=== PATIENT | female | born 1955 | race Caucasian/White ===

== ENCOUNTER 2017-09-09 11:00 | Outpatient (RCR) | payer OTHER, SELFPAY ==
--- NOTE | 2017-06-27 17:20 | HP.OTEVAL_ITS ---
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 Date of Evaluation: 06/27/17 Occupational Therapist: Joy Wayne - Subjective Subjective: Pt., Lei, nasimvd and noted surgery was May 31. She noted that splinted for two weeks,a nd the two weeks of casting. She noted she recently got cast off 1 hour prior to appointment. Notes everything is going 'pretty good '. - Pain Right Hand 0 Pain Intensity Range: 3, 8 - Objective Objective/Observation: Sobia presents with incision on dorsum of thumb. Wound closed but still healing at this time. She presents qwith decreasd ROM and strength. Sensation WFL. - ROM Wrist: WFL CMC: opposition: R 0-4, L 0-17 MP: flexion R 0-25, L 15-50 IP: flexion R 0-35, L 5-60 MP: WFL PIP: WFL DIP: WFL - Sensation Sensation Comments: WFL at this time. Denies numbness or tingling. - DASH-Disabilities of Arm, Shoulder& Hand DASH Sum: 52 - Goals Goal:: Pt. to increased R screw machine adjuster automatic to that of equal value of L screw machine adjuster automatic 2/3 trials 75% of the time to decrease need for assistance at return to PLOF and returning to work. Goal:: Pt. to increase R thumb ROM to that of equal value of left non affected hand 4/5 trials 80% of the time to promote increasing ROM and strength to complete ADl/AIDls by time of d/c. Goal:: Pt. to consistently rate R thumb at 0-1/10 pain during all ADL/IADLs 45 trials 80% of the time to promote increasing (I) and decreasing need for assistance by timeof d/c. Goal:: Pt. R fx pinch strength to be equal to L nonaffected hand 4/ 5 trials 80 % of the time to promote increased (I) and decreased need fo resistance by time of d/c. Goal:: Pt. to be mod I to complete jt protection techniques during all ADL/ IADLs to promote integrity of R thumb and returning to PLOF 4/ 5trials 80% of the time by d/c. Goal:: Pt. to be (I) to return to all ADl/IADLs including opening jar 4/ 5trials 80% of the time by d/c. - Rehabilitation General Assessment: Pt., Lei , arrived to session on this date. She is 4 weeks post-op of CMC arthoplasty and noted was casted for 4 weeks. Cast removed 1 hour prio to appointment. She presents with decreased ROM, strength, and ability to complete ADl/IADLs with R dominant hand. She notes pain minimal on this date. A forearm based thumb spica fabircated on this date and she is to start very light thumb oppositiobn as tolerated 2x daily 5-10 reps within pain tolerance. Rehabilitation Potential: Good - Anticipated Interventions Anticipated Interventions: A/AAROM/PROM, Strengthening, Edema Control, Scar Care , Massage, Desensitization, Modalities, Orthoses, Joint Protection/Energy Conservation, Ergonomic Education, Fine Motor Coord/Joo, ADL Training, Caregiver Training, Home Program - Visit Plan Frequency: 2-3x /Week Duration: 4-6 Weeks General Plan: Pt., Lei, to see OT for ttreat of thumb s/p CMC arthoplasty to promote pain management, increasing ROM, strength, and ability to return to all ADl/AIDls including work. TEXT: Thank you for the opportunity to evaluate your patient. For Medicare and Medicare HMO plans, please review the plan of care and approve it. It will need to be FAXED BACK to us at [phone] for Medicare purposes. Please let me know if there are questions or concerns regarding this plan of care. Physician Signature: Date:
--- NOTE | 2017-06-27 17:27 | HP.OTEVAL_ITS ---
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 Date of Evaluation: 06/27/17 Occupational Therapist: Joy Wayne - Subjective Subjective: Pt., Lei, arrived and noted surgery was May 31. She noted that splinted for two weeks, and the two weeks of casting. She noted she recently got cast off 1 hour prior to appointment. Notes everything is going 'pretty good '. - Pain Right Hand 0 Pain Intensity Range: 3, 8 - Objective Objective/Observation: Sobia presents with incision on dorsum of thumb and wrist over CMC. Wound closed but still healing at this time. She presents with decreasd ROM and strength. Sensation WFL. - ROM Wrist: WFL CMC: opposition: R 0-4, L 0-17 MP: flexion R 0-25, L 15-50 IP: flexion R 0-35, L 5-60 MP: WFL PIP: WFL DIP: WFL - Strength Head Start Teacher: R held L 47 Lateral Pinch: R held L 13 Tripod Pinch: R held L 10 Tip-to-Tip Pinch: R held L 7 - Sensation Sensation Comments: WFL at this time. Denies numbness or tingling. - DASH-Disabilities of Arm, Shoulder& Hand DASH Sum: 52 - Goals Goal:: Pt. to increased R communications electrician supervisor to that of equal value of L communications electrician supervisor 2/3 trials 75% of the time to decrease need for assistance at return to PLOF and returning to work. Goal:: Pt. to increase R thumb ROM to that of equal value of left non affected hand 4/5 trials 80% of the time to promote increasing ROM and strength to complete ADl/AIDls by time of d/c. Goal:: Pt. to consistently rate R thumb at 0-1/10 pain during all ADL/IADLs 45 trials 80% of the time to promote increasing (I) and decreasing need for assistance by timeof d/c. Goal:: Pt. R fx pinch strength to be equal to L nonaffected hand 4/ 5 trials 80 % of the time to promote increased (I) and decreased need fo resistance by time of d/c. Goal:: Pt. to be mod I to complete jt protection techniques during all ADL/ IADLs to promote integrity of R thumb and returning to PLOF 4/ 5trials 80% of the time by d/c. Goal:: Pt. to be (I) to return to all ADl/IADLs including opening jar 4/ 5trials 80% of the time by d/c. - Rehabilitation General Assessment: Pt., Jul , arrived to session on this date. She is 4 weeks post-op of CMC arthoplasty and noted was casted for 4 weeks. Cast removed 1 hour prio to appointment. She presents with decreased ROM, strength, and ability to complete ADl/IADLs with R dominant hand. She notes pain minimal on this date. A forearm based thumb spica fabircated on this date and she is to start very light thumb opposition as tolerated 2x daily 5-10 reps within pain tolerance. Rehabilitation Potential: Good - Anticipated Interventions Anticipated Interventions: A/AAROM/PROM, Strengthening, Edema Control, Scar Care , Massage, Desensitization, Modalities, Orthoses, Joint Protection/Energy Conservation, Ergonomic Education, Fine Motor Coord/Joo, ADL Training, Caregiver Training, Home Program - Visit Plan Frequency: 2-3x /Week Duration: 4-6 Weeks General Plan: Pt., Jul, to see OT for ttreat of thumb s/p CMC arthoplasty to promote pain management, increasing ROM, strength, and ability to return to all ADl/AIDls including work. TEXT: Thank you for the opportunity to evaluate your patient. For Medicare and Medicare HMO plans, please review the plan of care and approve it. It will need to be FAXED BACK to us at [phone] for Medicare purposes. Please let me know if there are questions or concerns regarding this plan of care. Physician Signature: Date:
--- NOTE | 2017-06-27 17:33 | HP.OTEVAL_ITS ---
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 Date of Evaluation: 06/27/17 Occupational Therapist: Joy Wayne - Subjective Subjective: Pt., Lei, arrived and noted surgery was May 31. She noted that splinted for two weeks,a nd the two weeks of casting. She noted she recently got cast off 1 hour prior to appointment. Notes everything is going 'pretty good '. - Pain Right Hand 0 Pain Intensity Range: 3, 8 - Objective Objective/Observation: Sobia presents with incision on dorsum of thumb and wrist over CMC. Wound closed but still healing at this time. She presents with decreasd ROM and strength. Sensation WFL. - ROM Wrist: WFL CMC: opposition: R 0-4, L 0-17 MP: flexion R 0-25, L 15-50 IP: flexion R 0-35, L 5-60 MP: WFL PIP: WFL DIP: WFL - Strength Set Up Mechanic Automatic Line: R held L 47 Lateral Pinch: R held L 13 Tripod Pinch: R held L 10 Tip-to-Tip Pinch: R held L 7 - Sensation Sensation Comments: WFL at this time. Denies numbness or tingling. - DASH-Disabilities of Arm, Shoulder& Hand DASH Sum: 52 - Goals Goal:: Pt. to increased R cribbing setter to that of equal value of L cribbing setter 2/3 trials 75% of the time to decrease need for assistance at return to PLOF and returning to work. Goal:: Pt. to increase R thumb ROM to that of equal value of left non affected hand 4/5 trials 80% of the time to promote increasing ROM and strength to complete ADl/AIDls by time of d/c. Goal:: Pt. to consistently rate R thumb at 0-1/10 pain during all ADL/IADLs 45 trials 80% of the time to promote increasing (I) and decreasing need for assistance by timeof d/c. Goal:: Pt. R fx pinch strength to be equal to L nonaffected hand 4/ 5 trials 80 % of the time to promote increased (I) and decreased need fo resistance by time of d/c. Goal:: Pt. to be mod I to complete jt protection techniques during all ADL/ IADLs to promote integrity of R thumb and returning to PLOF 4/ 5trials 80% of the time by d/c. Goal:: Pt. to be (I) to return to all ADl/IADLs including opening jar 4/ 5 trials 80% of the time by d/c. - Rehabilitation General Assessment: Pt., Jul , arrived to session on this date. She is 4 weeks post-op of CMC arthoplasty and noted was casted for 4 weeks. Cast removed 1 hour prio to appointment. She presents with decreased ROM, strength, and ability to complete ADl/IADLs with R dominant hand. She notes pain minimal on this date. A forearm based thumb spica fabricated on this date and she is to start very light thumb opposition as tolerated 2x daily 5-10 reps within pain tolerance. Rehabilitation Potential: Good - Anticipated Interventions Anticipated Interventions: A/AAROM/PROM, Strengthening, Edema Control, Scar Care , Massage, Desensitization, Modalities, Orthoses, Joint Protection/Energy Conservation, Ergonomic Education, Fine Motor Coord/Joo, ADL Training, Caregiver Training, Home Program - Visit Plan Frequency: 2-3x /Week Duration: 4-6 Weeks General Plan: Pt., Jul, to see OT for treatment of thumb s/p CMC arthoplasty to promote pain management, increasing ROM, strength, and ability to return to all ADl/AIDls including work. TEXT: Thank you for the opportunity to evaluate your patient. For Medicare and Medicare HMO plans, please review the plan of care and approve it. It will need to be FAXED BACK to us at [phone] for Medicare purposes. Please let me know if there are questions or concerns regarding this plan of care. Physician Signature: Date:
--- NOTE | 2017-08-08 14:35 | HP.OTREVAL ---
NOEL Moreau, PA.JOSEPH It has been my pleasure to treat LEI CORLEY over the last 15 visits for OA of first CMC joint R thumb. Please see the progress note below for an update on the occupational therapy plan of care! Subjective: Arrived and today is last schedules appointment. Noted increased soreness since returning to easy/progressive work. Reassessment to occur. Objective/Function: Reassessment completed. Infection is cleared by doctor and is now undercontrol. Tolerating light progression back to FT work. but increased soreness to 3/10. Lei ROM is WFL and is as follows: thumb opposition R 0-15, L 0-17; MP R 0-37, L 0-42, IP R -14-45, L 08-51. Strength assessment completed and is as follows: webbing supervisor R 37.6, L 51.6; lateral R 7, L 14; three jaw R 4, L 10; tip pinch R 1, L 1 lbs. Plan Frequency: 1x/Week Duration: 4 Weeks Plan: continue POC and promote increasing strength to decrease hand fatigue during work and to help increase stability to thumb for work related tasks. 1x a week fro 4 weeks and will increased HEP regimen. Goals - Goals Goal:: Pt. to increased R webbing supervisor to that of equal value of L webbing supervisor 2/3 trials 75% of the time to decrease need for assistance at return to PLOF and returning to work. Goal:: Pt. to increase R thumb ROM to that of equal value of left non affected hand 4/5 trials 80% of the time to promote increasing ROM and strength to complete ADl/AIDls by time of d/c. Goal:: Pt. to consistently rate R thumb at 0-1/10 pain during all ADL/IADLs 45 trials 80% of the time to promote increasing (I) and decreasing need for assistance by timeof d/c. Goal:: Pt. R fx pinch strength to be equal to L nonaffected hand 4/ 5 trials 80% of the time to promote increased (I) and decreased need fo resistance by time of d/c. Goal:: Pt. to be mod I to complete jt protection techniques during all ADL/IADLs to promote integrity of R thumb and returning to PLOF 4/ 5trials 80% of the time by d/c. Goal:: Pt. to be (I) to return to all ADl/IADLs including opening jar 4/ 5 trials 80% of the time by d/c. Anticipated Interventions Anticipated Interventions: A/AAROM/PROM, Strengthening, Edema Control, Scar Care, Massage, Desensitization, Modalities, Orthoses, Joint Protection/Energy Conservation, Ergonomic Education, Fine Motor Coord/Joo, ADL Training, Caregiver Training, Home Program Please do not hesitate to contact me at [phone] by phone or if you have questions or concerns regarding this new plan of care! Sincerely, Joy Wayne
--- NOTE | 2017-09-09 11:35 | HP.OTDCSUM_ITS ---
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 Please see the following information for a summary of their discharge status. - Objective Objective/Function: Reassessment completed on this date. Thenar eminence atrophy still present at this time. Pain is minimal. ROM is WFL and is as follows: CMC opposition R 0-15, L WFL, radial adduction R 0-37, L WFL; thumb MP R 8-35, L WFL ; IP R -14-51, L WFL. Strength assessment complete and is as follows: legal job titles R 41, L 82; lateral R 8, L 14; three jaw R 5, L 12; tip R 4, L 10. She has progressed with goals and has returned to work. - Goals Patient Goals: Regain Mobility, Regain Strength, Decrease Pain, Return to Work, Improve Fine Motor Skills, Use Hand/Wrist/Arm Normally Again, Increase ROM, Be More Independent in ADLS, Resume Former Household Responsibilities (Cooking, Cleaning,Yard, etc.), Resume Hobbies Goal:: Pt. to increased R legal job titles to that of equal value of L legal job titles 2/3 trials 75% of the time to decrease need for assistance at return to PLOF and returning to work. Goal:: Pt. to increase R thumb ROM to that of equal value of left non affected hand 4/5 trials 80% of the time to promote increasing ROM and strength to complete ADl/AIDls by time of d/c. Goal:: Pt. to consistently rate R thumb at 0-1/10 pain during all ADL/IADLs 45 trials 80% of the time to promote increasing (I) and decreasing need for assistance by timeof d/c. Goal:: Pt. R fx pinch strength to be equal to L nonaffected hand 4/ 5 trials 80 % of the time to promote increased (I) and decreased need fo resistance by time of d/c. Goal:: Pt. to be mod I to complete jt protection techniques during all ADL/ IADLs to promote integrity of R thumb and returning to PLOF 4/ 5trials 80% of the time by d/c. Goal:: Pt. to be (I) to return to all ADl/IADLs including opening jar 4/ 5 trials 80% of the time by d/c. - Plan Plan: She will be d/c'd on this date. She is to continue HEP and follow up with Dr. Strong. She is to call questions/ concerns. - D/C Information If there are questions or concerns regarding this patient's occupational therapy , please fell free to call me at [phone]. Thank you for the referral of this patient. Sincerely, Joy Wayne
== END 2017-09-09 19:00 | disposition home or self-care (01) ==
LOC: OT 11:00
PROVIDERS: Family Provider Family Medicine; PCP Family Medicine; Visit Provider Physician Assistant Surgical
DX: M18.11 Unilateral primary osteoarthritis of first carpometacarpal joint, right hand (principal)
CPT/HCPCS: 97018; 97035; 97110; 97140; 97166; 97530; 97760

== ENCOUNTER → 2017-11-04 09:17 | Outpatient (CLI) | payer OTHER, SELFPAY ==
[2017-11-04 10:11] LABS: AST(SGOT) 20 U/L (15-37); Alanine Aminotransfer ALT/SGPT 34 U/L (13-56); Albumin, Serum 3.5 g/dL (3.2-5.0); Alkaline Phosphatase 104 U/L (45-117); Bilirubin, Direct 0.05 mg/dL (0.00-0.30); Cholesterol 139 mg/dL (200); Globulin 3.4 g/dL (2.2-4.2); High Density Lipoprotein 47 mg/dL; Protein, Total 6.9 g/dL (6.4-8.2); Triglycerides 158 mg/dL; Very Low Density Lipoprotein 32 mg/dL (5-40)
== END ==
PROVIDERS: Family Provider Family Medicine; PCP Family Medicine; Visit Provider Internal Medicine Cardiovascular Disease
DX: E78.5 Hyperlipidemia, unspecified (principal)
CPT/HCPCS: 36415; 80061; 80076

== ENCOUNTER → 2018-05-22 09:41 | Outpatient (CLI) | payer OTHER, SELFPAY ==
[2018-05-22 11:17] LABS: AST(SGOT) 25 U/L (15-37); Alanine Aminotransfer ALT/SGPT 45 U/L (13-56); Albumin, Serum 3.7 g/dL (3.2-5.0); Alkaline Phosphatase 92 U/L (45-117); Bilirubin, Direct 0.11 mg/dL (0.00-0.30); Cholesterol 145 mg/dL (200); Globulin 3.2 g/dL (2.2-4.2); High Density Lipoprotein 51 mg/dL; Protein, Total 6.9 g/dL (6.4-8.2); Triglycerides 118 mg/dL; Very Low Density Lipoprotein 24 mg/dL (5-40)
== END ==
PROVIDERS: Physician Assistant Medical; Family Provider Family Medicine; PCP Family Medicine; Referring Provider Internal Medicine Cardiovascular Disease; Visit Provider Internal Medicine Cardiovascular Disease
DX: E78.5 Hyperlipidemia, unspecified (principal)
CPT/HCPCS: 36415; 80061; 80076

== ENCOUNTER → 2018-07-07 20:12 | Outpatient (CLI) | payer OTHER, SELFPAY | PROVIDERS: Family Provider Family Medicine; PCP Family Medicine; Visit Provider Internal Medicine Cardiovascular Disease | DX: G47.10 Hypersomnia, unspecified (principal) | CPT/HCPCS: 95810 ==

== ENCOUNTER → 2018-12-08 | Outpatient (CLI) | payer OTHER, SELFPAY ==
[2018-10-02 13:02] VITALS: BMI 28.4
[2018-12-08 11:22] LABS: AST(SGOT) 31 U/L (15-37); Alanine Aminotransfer ALT/SGPT 33 U/L (13-56); Albumin, Serum 3.6 g/dL (3.2-5.0); Alkaline Phosphatase 96 U/L (45-117); Bilirubin, Direct 0.08 mg/dL (0.00-0.30); Cholesterol 139 mg/dL (200); Globulin 3.4 g/dL (2.2-4.2); High Density Lipoprotein 49 mg/dL; Triglycerides 148 mg/dL; Very Low Density Lipoprotein 30 mg/dL (5-40)
== END | disposition home or self-care (01) ==
LOC: LAB 09:39
PROVIDERS: Family Provider Family Medicine; PCP Family Medicine; Referring Provider Physician Assistant Medical; Visit Provider Physician Assistant Medical
DX: E78.5 Hyperlipidemia, unspecified (principal)
CPT/HCPCS: 36415; 80061; 80076

== ENCOUNTER 2019-07-17 02:54 | Emergency (ER) | payer OTHER, SELFPAY ==
[2019-07-06 07:45] VITALS: BMI 27.7
[2019-07-17 02:55] VITALS: BP 161/74; PULSE 65; RESP 16; TEMP 36.6; O2SAT 100; BMI 27.5
--- NOTE | 2019-07-17 03:19 | ED.DCSUM_ITS ---
History of Present Illness Chief Complaint: Flank Pain Informant: Patient Narrative: Resenting with left-sided flank and back pain that started just prior to arrival. Is a sharp stabbing pain associate with nausea. No history of kidney stones. Is not movement related. No injury. No history of AAA. No abdominal pain. Past Medical History - Allergies and Home Meds Allergies/Adverse Reactions: Allergies Penicillins Adverse Reaction (Verified 07/17/19 02:59) Hives Primary Care Physician: Mervin Munoz MD [Primary Care Provider] - Prior records reviewed: Yes Past Medical History: - - Benign mass on the colon Surgical History: - - Colon, stomach, thyroid Lives: With Family Smoking Status: Former smoker Alcohol: None Drugs: None - Family History Sibling Family History: Family History (Last Reviewed 07/06/19 @ 08:51 by ROSALBA Godwin) Father CAD (coronary artery disease) Myocardial infarction, Onset Age: 56 History Cabg Brother CAD (coronary artery disease) History Cabg, Onset Age: 52 Brother CAD (coronary artery disease) History Cabg, Onset Age: 56 Family History: Reports: Heart Disease Maternal Family History: Family History (Last Reviewed 07/06/19 @ 08:51 by ROSALBA Godwin) Father CAD (coronary artery disease) Myocardial infarction, Onset Age: 56 History Cabg Brother CAD (coronary artery disease) History Cabg, Onset Age: 52 Brother CAD (coronary artery disease) History Cabg, Onset Age: 56 Family History: Reports: Hypertension Review of Systems General: Denies: Chills, Fever, Sweats Eyes: Denies: Visual changes - bilaterally, Diplopia ENT: Denies: Rhinorrhea, Sore throat Cardiovascular: Denies: Chest pain, Palpitations Respiratory: Denies: Dyspnea, Cough, Dyspnea on exertion Gastrointestinal: Reports: Nausea. Denies: Abdominal pain, Vomiting, Diarrhea, Melena, Hematochezia Genitourinary: Denies: Dysuria, Hematuria, Frequency Musculoskeletal: Reports: Back pain. Denies: Extremity Pain Skin: Denies: Rash, Wounds Neurological: Denies: Headache, Weakness, Numbness Physical Exam Vital Signs/Narrative: Vital Signs Temp Pulse Resp BP Pulse Ox 07/17/19 02:55 97.9 F 65 16 161/74 H 100 Diagnostic/Tx/Re-eval - Medical Decision Making IV fluids morphine Zofran. Lab work CT abdomen pelvis obtained. CT shows a 4 x 4 mm left-sided kidney stone with hydro-. Urinalysis shows red blood cells. 5- 10 white blood cells with 1+ bacteria. I feel this is not infection. CBC normal. Patient felt much better after treatment. Will be discharged to follow-up with urology. There is a good chance she will pass this on her own. Given a prescription for Percocet and Zofran ED Disposition - Plan for ED Patient: Disposition: Psychiatric Hospital or Unit Diagnosis: Kidney stone on left side Instructions: KIDNEY STONE w/ Colic Prescriptions: Oxycodone HCl/Acetaminophen [Percocet 5/325] 1 - 2 tab PO Q6H PRN PRN 3 Days #12 tab PRN Reason: Pain Prescription Printed Ondansetron [Zofran Odt] 4 mg PO Q8H PRN PRN #10 tab PRN Reason: Nausea Prescription Printed Referrals: Jr Henderson MD [STAFF PHYSICIAN] -
--- NOTE | 2019-07-17 03:19 | CT_ITS ---
HISTORY: LEFT FLANK PAIN X 1 HOUR, HX HTN, MARCY, COLON POLYPS REMOVED TECHNIQUE: Helically acquired images were obtained of the abdomen and pelvis without oral or IV contrast. A radiation dose optimization technique was used for this scan. COMPARISON: None FINDINGS: # of images incl. paperwork: 450 LUNG BASES: clear. CT abdomen: Facet arthropathy and degenerative disc disease within the lower lumbar spine. Vertebral body height is well preserved. Mild degenerative disc disease. The gallbladder remains. Liver, spleen, pancreas, and adrenal glands are normal. The right kidney and ureter are normal. The left kidney demonstrates hydronephrosis and perirenal edema. As demonstrated on the coronal images, magnified views, bone window level, within either the proximal left ureter, or at the left ureteropelvic junction, there is a 4 x 4 mm obstructing stone. It is at the level of the L3 left transverse process. The aorta is disease with circumferential atherosclerotic calcific plaque. There is no intra-or extrahepatic biliary ductal dilatation. CT pelvis: No ascites is present. The uterus has been resected. The appendix is normal. Series 2 image 107. The bladder is decompressed. There is a periumbilical anterior abdominal wall hernia. Is mostly above the umbilicus but is through the midline. Transverse colon and omentum extend into the hernia. The bowel within the hernia does not have a thick wall. There is no upstream distention of bowel indicative that the bowel herniating with into the anterior abdominal wall is causing an obstruction. I measured the hernia to be 10 x 5 x 8 cm. Diverticulosis is severe within the sigmoid colon CT/Abdomen/Pelvis without Cont IMPRESSION: 10 x 5 x 8 cm anterior abdominal wall supraumbilical hernia. Transverse colon and omentum are present within the hernia. There is minimal induration of the fat. It does not appear to be causing a bowel obstruction. The bowel within the hernia does not have thickened garrett. 4 x 4 millimeter obstructing left UVJ or proximal left ureter stone with left hydronephrosis and perirenal edema. Individualized dose optimization techniques were used for this CT. at 0440 Reported and signed by: Celio Giron MD Electronically Signed: Celio Giron MD at 4:39 EST Tel , Service support ,
[2019-07-17] MEDS: Morphine 4 MG/ML Syringe IV ×2 (03:26→05:07)
[2019-07-17] MEDS: Ondansetron 4 MG/2 ML Vial IV (03:26)
[2019-07-17 03:29] LABS: Absolute Lymphocyte Count 3.51 X10^3/uL (0.83-4.51); Absolute Neutrophil Count 3.5 X10^3/uL (2.0-7.7); Basophil# 0.03 X10^3/uL; Basophil% 0.4 % (0-1); Eosinophil# 0.24 X10^3/uL; Hematocrit 39.8 % (37-47); Lymphocyte # 3.51 X10^3/ul (4.0); Lymphocyte % 43.3 % (19-41); Mean Corp Hgb Conc 32.7 g/dL (32-36); Mean Corpuscular Hgb 30.5 pg (27.0-32.0); Mean Corpuscular Volume 93.4 fL (81-99); Mean Platelet Vol. 9.9 fl (6.2-12.0); Monocyte# 0.84 X10^3/uL; Monocyte% 10.4 % (0-10); NRBC Flagged by Analyzer 0 % (0-5); Neutrophil # 3.48 X10^3/uL (2.7-7.7); Neutrophil % 42.8 % (47-70); Platelet Count 238 K/mm3 (150-450); RBC Distribution Width CV 13.5 % (11.6-14.6); RBC Distribution Width SD 45.9 fl (35.1-43.9); Red Blood Count 4.26 M/mm3 (4.2-5.4); White Blood Count 8.1 K/mm3 (4.4-11.0)
[2019-07-17 03:36] LABS: Anion Gap 5 (5-15); BUN 16 mg/dL (7-18); BUN/Creat Ratio 17.9 RATIO (10-20); Calcium,Total 8.7 mg/dL (8.5-10.1); Chloride 105 mmol/L (98-107); EST Glomerular Filtration Rate 67 mL/min (>60); Est Glom Filt Rate - Afr Amer 81 mL/min (>60); Estimated Creatinine Clearance 53.81 ml/min; Glucose 122 mg/dL (74-106); Potassium 3.5 mmol/L (3.5-5.1); Sodium Level 142 mmol/L (136-145)
[2019-07-17] MEDS: 0.9% Normal Saline 1,000 ML 250 ML IV (03:38)
[2019-07-17 04:33] LABS: Mucous, Urine 0 SEEN /hpf (<or=2+)
[2019-07-17 04:36] LABS: Color, Urine Amber (Yellow); Glucose, Dipstick Normal (Normal); Ketone-Dipstick 5 mg/dl (Negative); Leukocyte Esterase-Dipstick 100 /ul (Negative); Nitrite-Dipstick Negative (Negative); Occult Blood-Urine 250 /ul (Negative); Protein-Dipstick 30 mg/dl (Negative); Specific Gravity, Urine 1.025 (1.002-1.030); Urine Clarity Cloudy (Clear); Urine Urobilinogen Normal (Normal)
[2019-07-17 04:41] LABS: Urine Bilirubin Dipstick 1 mg/dL (Negative)
[2019-07-17 04:46] LABS: Red Blood Cells-Urine 25-50 SEEN /hpf (0-5); White Blood Cells 5-10 SEEN /hpf (0-5)
[2019-07-17 04:47] LABS: Bacteria 1+ /hpf (None Seen); Hyaline Cast 0-5 SEEN /lpf (0-5); Squamous Epithelial Cells - UA 0-5 SEEN /hpf (5-10)
[2019-07-17 05:10] VITALS: BP 143/74; PULSE 74; RESP 18; O2SAT 99
== END 2019-07-17 05:16 | disposition home or self-care (01) ==
PROVIDERS: Emergency Provider Emergency Medicine; Family Provider Family Medicine; PCP Family Medicine
DX: N13.2 Hydronephrosis with renal and ureteral calculous obstruction (principal); Z87.891 Personal history of nicotine dependence
CPT/HCPCS: 74176; 80048; 81001; 85025; 96361; 96374; 96375; 96376; 99283; J7030; A4216; J2405

== ENCOUNTER → 2019-07-23 08:57 | Outpatient (CLI) | payer OTHER, SELFPAY ==
[2019-07-17 02:55] VITALS: BMI 27.5
--- NOTE | 2019-07-23 09:09 | RAD_ITS ---
STUDY: X-RAY - ABDOMEN/PELVIS REASON FOR EXAM: Female, 63 years old. kidney stone left side TECHNIQUE: Single supine frontal projection of the abdomen. COMPARISON: None. FINDINGS: There is a 5.2 x 3.5 mm calcification in the left paramedian upper quadrant just superior to the transverse process of L2. There are small calcified findings within the bilateral pelvis most compatible with calcified phleboliths. No other pathologic calcifications are identified. There is an unremarkable bowel gas pattern. There is no gross free air on this single supine view. There is no plain film evident intra-abdominal mass or mass effect. Normal soft tissue structures. No evident acute osseous abnormality. Patient is status post right paramedian pelvic surgery with multiple surgical clips. RAD/Abdomen Single View IMPRESSION: There is a 5.2 x 3.5 mm calculi within the proximal most left ureter versus at the left UPJ region. Calcified pelvic phleboliths. Status post right paramedian pelvic surgery. Significant L5-S1 facet arthrosis and degenerative disc disease. Electronically Signed: Kunal Tate MD at 13:36 EST , Service support ,
== END ==
PROVIDERS: Family Provider Family Medicine; PCP Family Medicine; Referring Provider Urology; Visit Provider Urology
DX: N20.0 Calculus of kidney (principal)
CPT/HCPCS: 74018

== ENCOUNTER → 2019-08-05 08:04 | Outpatient (CLI) | payer OTHER, SELFPAY ==
[2019-07-27 13:57] VITALS: BMI 26.1
[2019-08-05 09:44] LABS: AST(SGOT) 14 U/L (15-37); Alanine Aminotransfer ALT/SGPT 25 U/L (13-56); Albumin, Serum 3.3 g/dL (3.2-5.0); Alkaline Phosphatase 67 U/L (45-117); Bilirubin, Direct 0.12 mg/dL (0.00-0.30); Cholesterol 142 mg/dL (200); High Density Lipoprotein 43 mg/dL; Protein, Total 6.3 g/dL (6.4-8.2); Triglycerides 155 mg/dL; Very Low Density Lipoprotein 31 mg/dL (5-40)
== END ==
PROVIDERS: Family Provider Family Medicine; PCP Family Medicine; Referring Provider Internal Medicine Cardiovascular Disease; Visit Provider Internal Medicine Cardiovascular Disease
DX: E78.5 Hyperlipidemia, unspecified (principal)
CPT/HCPCS: 36415; 80061; 80076

== ENCOUNTER → 2019-10-08 10:16 | Outpatient (CLI) | payer OTHER, SELFPAY ==
[2019-09-28 13:06] VITALS: BMI 26.1
--- NOTE | 2019-10-08 10:16 | STE_ITS ---
Reason For Study: PREOP Stress Results Protocol: Ar Protocol Maximum Predicted HR: 155 bpm Target HR: 132 bpm % Maximum Predicted HR: 86 % DurationHeart Rate Stage (mm:ss) (bpm) BP Comment BASELINE 65 128/64 STAGE 1 3:00 90 140/62 STAGE 2 3:00 107 140/62 STAGE 3 3:00 134 162/66SLIGHT SOB RECOVERY 89 130/68 Stress Duration: 9:00 mm:ss Maximum Stress HR: 134 bpm Baseline Echocardiogram Findings The estimated ejection fraction is 65 %. Stress Echo Wall motion Data Resting WM Intermediate WM Stress WM Resting Wall Motion Wall Motion Stress No regional wall motion No regional wall motion abnormalities noted. abnormalities noted. EKG Data The baseline ECG displays normal sinus rhythm. The patient exercised according to the regular Ar protocol for a total duration of 4. The maximum heart rate attained was 142 beats per minute. This was 91% of maximum predicted heart rate. The patient exercised into stage 4 of the Ar protocol. At peak exercise, upsloping ST changes only were noted, which did not meet the criteria for ischemia. No clinical angina was noted. No arrhythmias noted. Interpretation Summary The estimated ejection fraction is 65 %. Normal, adequate, treadmill echocardiogram. Negative for ischemia by EKG and echocardiographic criteria. No anginal symptoms noted. No arrhythmias noted. Final LVEF is 75%. Test terminated due to attainment target heart rate. Decrease sensitivity due to poor echo windows requiring Definity agent. Patient tolerate procedure well. No complications. Ordering Physician: Sanjay Llanes Referring Physician: Sanjay Llanes Performed By: Omayra Alfonso, EMELIA, RVT
== END ==
PROVIDERS: PCP Family Medicine; Referring Provider Internal Medicine Cardiovascular Disease; Visit Provider Internal Medicine Cardiovascular Disease
DX: Z01.810 Encounter for preprocedural cardiovascular examination (principal); R94.31 Abnormal electrocardiogram [ECG] [EKG]; E78.5 Hyperlipidemia, unspecified; E11.9 Type 2 diabetes mellitus without complications; G47.30 Sleep apnea, unspecified
CPT/HCPCS: 93017; 93350

== ENCOUNTER → 2020-02-29 12:49 | Outpatient (CLI) | payer OTHER, SELFPAY ==
[2020-02-15 09:19] VITALS: BMI 28.0
--- NOTE | 2020-02-29 12:49 | ECHOD_ITS ---
Reason For Study: PHTN Procedure This was a 2D Doppler, Color Flow transthoracic echocardiogram. Exam performed in department. Left Ventricle Normal size and thickness. The estimated ejection fraction is 65 %. Stage 1 diastolic dysfunction. No regional wall motion abnormalities noted. Right Ventricle Normal size and thickness. Normal systolic function. Atria Normal left atrium. Normal right atrium. Normal atrial septum. Mitral Valve The mitral valve is structurally normal. No prolapse or stenosis seen. Tricuspid Valve Normal tricuspid valve. Mild (1+) tricuspid valve insufficiency. Right ventricular systolic pressure estimated to be 34 mmHg. Aortic Valve Normal aortic valve. Trisinus/trileaflet aortic valve. Pulmonic Valve Normal pulmonic valve. Great Vessels Normal aortic root. Normal arch. Normal inferior vena cava. Inferior vena cava collapse with sniff. Pericardium/Pleural No pericardial effusion. MMode/2D Measurements & Calculations LVIDd: 4.7 cm IVSd: 0.93 cm Ao root diam: 3.0 cm LVIDs: 2.0 cm LVPWd: 1.0 cm LA dimension: 3.5 cm RVDd: 3.4 cm FS: 57.5 % LAV(MOD-bp): 30.2 ml LA A4 area: 11.8 cm2 RA A4 area: 13.9 cm2 LAV(MOD-bp) Indexed: 17.1 ml/m2 LAV(MOD-sp2): 24.4 ml LAV(MOD-sp4): 29.4 ml Time Measurements MV dec time: 0.29 sec Doppler Measurements & Calculations MV E max osmin: 58.2 cm/sec Lat Peak E' Osmin: 6.8 cm/sec Med Peak E' Osmin: 6.8 cm/sec MV A max osmin: 84.7 cm/sec E/E' lat: 8.6 E/E' med: 8.5 MV E/A: 0.69 MV V2 max: 118.5 cm/sec MV P1/2t max osmin: 70.3 cm/sec Ao V2 max: 115.2 cm/sec MV max P.6 mmHg MV P1/2t: 70.2 msec Ao max P.3 mmHg MV V2 mean: 55.3 cm/sec MV dec slope: 293.4 cm/sec2 Ao V2 mean: 74.1 cm/sec MV mean P.4 mmHg MVA(P1/2t): 3.1 cm2 Ao mean P.5 mmHg MV V2 VTI: 26.7 cm Ao V2 VTI: 23.2 cm LV V1 max: 102.7 cm/sec PA V2 max: 85.7 cm/sec TR max osmin: 269.3 cm/sec LV V1 max P.2 mmHg TR max P.0 mmHg LV V1 mean P.0 mmHg LV V1 mean: 65.5 cm/sec LV V1 VTI: 23.9 cm Interpretation Summary The estimated ejection fraction is 65 %. Stage 1 diastolic dysfunction. Mild (1+) tricuspid valve insufficiency. Right ventricular systolic pressure estimated to be 34 mmHg. Compared to echo report dated 05/08/2017, no appreciable changes noted. Ordering Physician: Sanjay Llanes Referring Physician: Sanjay Llnaes Performed By: Raffy Cottrell RCS
== END ==
PROVIDERS: PCP Family Medicine; Referring Provider Internal Medicine Cardiovascular Disease; Visit Provider Internal Medicine Cardiovascular Disease
DX: R94.31 Abnormal electrocardiogram [ECG] [EKG] (principal); E11.9 Type 2 diabetes mellitus without complications; G47.33 Obstructive sleep apnea (adult) (pediatric)
CPT/HCPCS: 93306

== ENCOUNTER → 2020-04-11 17:19 | Outpatient (CLI) | payer OTHER, SELFPAY ==
[2020-04-07 13:32] VITALS: BMI 28.2
== END ==
PROVIDERS: PCP Family Medicine; Referring Provider Family Medicine; Visit Provider Family Medicine
DX: Z20.828 Contact with and (suspected) exposure to other viral communicable diseases (principal)
CPT/HCPCS: 87635; C9803; U0003

== ENCOUNTER 2020-05-03 08:55 | Day surgery (SDC) | payer OTHER, SELFPAY ==
[2020-03-24 13:41] VITALS: BMI 26.1
--- NOTE | 2020-04-07 01:32 | HP_ITS ---
Intake Vital Signs 04/07/20 Height 5 ft 3 in 04/07/20 Weight: 159 lb 4 oz 04/07/20 BMI 28.2 04/07/20 BP 126/78 H 04/07/20 Blood Pressure Location Rt brachial 04/07/20 Position Sitting 04/07/20 Respiration 16 04/07/20 Pulse 81 04/07/20 Pulse Source Monitor 04/07/20 Temp 97.9 F 04/07/20 Temp Source Temporal 04/07/20 Pulse Oximetry (%) 100 04/07/20 Oxygen Delivery Method room air 04/07/20 BMI 26.1 Intake Visit Reasons: UPDATE H & P Chief Complaint: update H&P for umbilical Pediatric Care Coordinator Required: No Is patient in pain?: No Allergies Penicillins Adverse Reaction (Verified 04/07/20 13:33) Hives Medications Cholecalciferol (VIT D3) [Vitamin D3] 1,000 unit PO DAILY 03/24/16 [History Confirmed 04/07/20] Famotidine [Pepcid] 40 mg PO DAILY 03/24/16 [History Confirmed 04/07/20] Levothyroxine [Synthroid] 137 mcg PO DAILY 03/24/16 [History Confirmed 04/07/20] Nabumetone [Relafen] 750 mg PO DAILY 03/24/16 [History Confirmed 04/07/20] Pyridoxine HCl [Vitamin B-6] 100 mg PO DAILY 03/24/16 [History Confirmed 04/07/20] aspirin 81 mg tablet,delayed release 81 mg PO .q day tab 10/23/17 [History Confirmed 04/07/20] atorvastatin 20 mg tablet 20 mg PO QHS tab 10/23/17 [History Confirmed 04/07/20] flaxseed oil 1,000 mg capsule 1,000 mg PO QDAY 10/23/17 [History Confirmed 04/07/20] glucosamine 500 dh-hltwvlvvg-lnw no1 416.6 mg-C 20 ok-zdfg-sgab tablet 1 tab PO .q day ea 10/23/17 [History Confirmed 04/07/20] fgwqnnpl-ezs-qrbls acid 0.4 mg-lycopene 300 mcg-lutein 250 mcg tablet 1 tab PO QDAY 10/23/17 [History Confirmed 04/07/20] omega-3 fatty acids 1,000 mg capsule 1,000 mg PO QDAY 10/23/17 [History Confirmed 04/07/20] selenium 200 mcg capsule 200 mcg PO QDAY 10/23/17 [History Confirmed 04/07/20] triamterene 50 mg-hydrochlorothiazide 25 mg capsule 1 cap PO .q day ea 10/23/17 [History Confirmed 04/07/20] metformin 500 mg tablet 500 mg PO BID tab 06/02/18 [History Confirmed 04/07/20] losartan 25 mg tablet 25 mg PO QDAY #90 tab 07/14/19 [Rx Confirmed 04/07/20] Alendronate Sodium 1 tab PO QWEEK 07/17/19 [History Confirmed 04/07/20] fluticasone propionate 50 mcg/actuation nasal spray,suspension 1 spray INTRANASAL QDAY PRN 02/15/20 [History Confirmed 04/07/20] [facility] Medical History Sleep apnea (Acute) History of colon polyps (Acute) History of thyroid cancer (Acute ~2013) History of pneumococcal pneumonia (Resolved) History of bronchitis (Resolved) Diabetes mellitus type II, controlled (Chronic) Abnormal EKG (Chronic) Hyperlipidemia (Chronic) Hypothyroidism (Chronic) Hypertension (Chronic) Surgical History right hand surgery (Resolved) 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) History of tubal ligation (Chronic) Status post bilateral foot surgery (Chronic) History of total abdominal hysterectomy and bilateral salpingo-oophorectomy (Chronic) History of thyroidectomy (Chronic) Family History Father CAD (coronary artery disease) Myocardial infarction, Onset Age: 56 History Cabg Hypertension Brother CAD (coronary artery disease) History Cabg, Onset Age: 52 Diabetes Hypertension Brother CAD (coronary artery disease) History Cabg, Onset Age: 56 Social History Smoking Status: Former smoker how long ago did patient quit smokin, 1ppd second hand exposure: Yes HPI HPI HPI: HOLDEN CORLEY, is a 64 F who presents to the office today for HPI HPI HPI: HOLDEN CORLEY, is a 64 F who presents to the office today for ROS General General: No weight change, appetite, fatigue, colon cancer, breast cancer or weakness HEENT HEENT: No difficulty swallowing, eye injury, eye surgery, swollen glands or hoarseness Endo Endocrine: Yes diabetes mellitus and thyroid cancer; no thyroid disease, Hair loss, heat intolerance or cold intolerance Breast Breast: No left breast lump, right breast lump, nipple discharge, breast pain, abnormal mammogram, abnormal US or breast enlargement Musc Musculoskeletal: Yes arthritis; no back problems, rheumatoid arthritis, gout or joint pain Cardio Cardiovascular: Yes high blood pressure; no murmur, pacemaker, heart disease, atrial fibrillation, heart attack, heart stent, palpitations, shortness of breat with exertion or chest pain Psych Psychiatric: No depression, anxiety or hearing voices Resp Respiratory: No shortness of breath, Yes sleep apnea, No cough, No COPD, No asthma, No emphysema, No wheezing Gastro Gastrointestinal: No abdominal pain, No nausea or vomiting, No diarrhea, No constipation, No blood in stool, Yes acid reflux, No hemorrhoids, No ulcers, No gallbladder problem, No black,tarry stools Jamaal Hematologic: No blood thinners, No blood disorders, No bleeding, No anemia, No blood clots Neuro Neurologic: No weakness Exam Chest Breast Palpation: No nipple discharge Cardio Heart Sounds: no murmurs Assessment & Plan Problems 1. Incisional hernia, without obstruction or gangrene K43.2 Plan My plan is to perform an Incisional hernia repair with mesh. The planned surgical procedure was discussed extensively with the patient. The risks, benefits, anticipated outcomes and possible complication were mentioned. The patient understands that all hernia repair surgery has a chance of recurrence and/or chronic post-operative pain. My staff has also explained the procedure in understandable terms and the patient was given the option to take printed material concerning the planned procedure. The patient had the opportunity to ask questions concerning the planned procedure. The patient freely consents to the planned procedure. Coding Level of Care Code Off vis,est,level 2 Diagnoses Incisional hernia, without obstruction or gangrene K43.2 ??Obstruction and gangrene presence: without obstruction or gangrene Date _ Sanjay Hayes MD
[2020-04-07 13:32] VITALS: BMI 28.2
--- NOTE | 2020-04-25 12:47 | EKG12_ITS ---
Test Reason : PRE OP Blood Pressure : / mmHG Vent. Rate : 081 BPM Atrial Rate : 081 BPM P-R Int : 146 ms QRS Dur : 084 ms QT Int : 382 ms P-R-T Axes : 065 040 -05 degrees QTc Int : 443 ms Normal sinus rhythm Nonspecific ST and T wave abnormality Abnormal ECG Confirmed by JAJA PERDOMO, THUY ([id number]), newspaper or periodical editor PEPITO COLE ([id number]) on 04/27/2020 10:14:29 AM Referred By: Sanjay Hayes Confirmed By:THUY WILKINSON MD
[2020-04-25 13:14] LABS: Hematocrit 39.7 % (37-47); Hemoglobin 13.8 g/dL (12.0-15.0); Mean Corp Hgb Conc 34.8 g/dL (32-36); Mean Corpuscular Volume 92.1 fL (81-99); Mean Platelet Vol. 9.9 fl (6.2-12.0); Platelet Count 247 K/mm3 (150-450); RBC Distribution Width CV 13.5 % (11.6-14.6); RBC Distribution Width SD 44.2 fl (35.1-43.9); Red Blood Count 4.31 M/mm3 (4.2-5.4); White Blood Count 9.3 K/mm3 (4.4-11.0)
[2020-04-25 13:36] LABS: Hemoglobin A1c 6.3 % (3.8-5.6)
[2020-04-25 13:47] LABS: Anion Gap 8 (5-15); BUN 14 mg/dL (7-18); BUN/Creat Ratio 13.7 RATIO (10-20); Calcium,Total 9.4 mg/dL (8.5-10.1); Chloride 103 mmol/L (98-107); Creatinine, Serum 1.02 mg/dL (0.55-1.02); EST Glomerular Filtration Rate 58 mL/min (>60); Est Glom Filt Rate - Afr Amer 70 mL/min (>60); Glucose 175 mg/dL (74-106); Potassium 3.5 mmol/L (3.5-5.1); Sodium Level 137 mmol/L (136-145)
[2020-05-03] VITALS (11 sets, daily range): BP systolic 110–145; BP diastolic 52–82; PULSE 74–93; RESP 16–18; TEMP 36.2–37.3; O2SAT 92–99; BMI 26.6; BMI 27.4
[2020-05-03 09:40] LABS: Bedside Glucose 123 mg/dL (70-110)
[2020-05-03] MEDS: Lactated Ringers 1,000 ML 100 ML IV ×2 (09:53→18:42)
--- NOTE | 2020-05-03 10:54 | PCM.HP.BLA ---
History and Physical Date of Admission: 05/03/20 [facility] [address] [place] [address] OFFICE VISIT Date of Service: 04/07/20 MR#: [id number] Acct: [id number] Name: HODLEN CORLEY Rep #: [id number] : 1955 Provider: Dr. Sanjay Hayes MD Age/Sex: 64/F Location: [facility] Status: Signed Intake Vital Signs 04/07/20 Height 5 ft 3 in 04/07/20 Weight: 159 lb 4 oz 04/07/20 BP 126/78 H 04/07/20 Blood Pressure Location Rt brachial 04/07/20 Position Sitting 04/07/20 Respiration 16 04/07/20 Pulse 81 04/07/20 Pulse Source Monitor 04/07/20 Temp 97.9 F 04/07/20 Temp Source Temporal 04/07/20 Pulse Oximetry (%) 100 04/07/20 Oxygen Delivery Method room air 04/07/20 BMI 26.1 Intake Visit Reasons: UPDATE H & P Chief Complaint: update H&P for umbilical Enrollment Representative Required: No Is patient in pain?: No Allergies Penicillins Adverse Reaction (Verified 04/07/20 13:33) Hives Medications Cholecalciferol (VIT D3) [Vitamin D3] 1,000 unit PO DAILY 03/24/16 [History Confirmed 04/07/20] Famotidine [Pepcid] 40 mg PO DAILY 03/24/16 [History Confirmed 04/07/20] Levothyroxine [Synthroid] 137 mcg PO DAILY 03/24/16 [History Confirmed 04/07/20] Nabumetone [Relafen] 750 mg PO DAILY 03/24/16 [History Confirmed 04/07/20] Pyridoxine HCl [Vitamin B-6] 100 mg PO DAILY 03/24/16 [History Confirmed 04/07/20] aspirin 81 mg tablet,delayed release 81 mg PO .q day tab 10/23/17 [History Confirmed 04/07/20] atorvastatin 20 mg tablet 20 mg PO QHS tab 10/23/17 [History Confirmed 04/07/20] flaxseed oil 1,000 mg capsule 1,000 mg PO QDAY 10/23/17 [History Confirmed 04/07/20] glucosamine 500 rx-yadlxlbog-pwj no1 416.6 mg-C 20 me-iucb-exhe tablet 1 tab PO .q day ea 10/23/17 [History Confirmed 04/07/20] wlluqypl-frs-hrztq acid 0.4 mg-lycopene 300 mcg-lutein 250 mcg tablet 1 tab PO QDAY 10/23/17 [History Confirmed 04/07/20] omega-3 fatty acids 1,000 mg capsule 1,000 mg PO QDAY 10/23/17 [History Confirmed 04/07/20] selenium 200 mcg capsule 200 mcg PO QDAY 10/23/17 [History Confirmed 04/07/20] triamterene 50 mg-hydrochlorothiazide 25 mg capsule 1 cap PO .q day ea 10/23/17 [History Confirmed 04/07/20] metformin 500 mg tablet 500 mg PO BID tab 06/02/18 [History Confirmed 04/07/20] losartan 25 mg tablet 25 mg PO QDAY #90 tab 07/14/19 [Rx Confirmed 04/07/20] Alendronate Sodium 1 tab PO QWEEK 07/17/19 [History Confirmed 04/07/20] fluticasone propionate 50 mcg/actuation nasal spray,suspension 1 spray INTRANASAL QDAY PRN 02/15/20 [History Confirmed 04/07/20] [facility] Medical History Sleep apnea (Acute) History of colon polyps (Acute) History of thyroid cancer (Acute ~2012) History of pneumococcal pneumonia (Resolved) History of bronchitis (Resolved) Diabetes mellitus type II, controlled (Chronic) Abnormal EKG (Chronic) Hyperlipidemia (Chronic) Hypothyroidism (Chronic) Hypertension (Chronic) Surgical History right hand surgery (Resolved) 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 Sanjay Hayes MD) Smoking Status: Former smoker how long ago did patient quit smokin, 1ppd second hand exposure: Yes HPI HPI HPI: HOLDEN CORLEY, is a 64 F who presents to the office today for HPI HPI Surgical H&P: Yes HPI: HOLDEN CORLEY, is a 64 F who presents to the office today for Reevaluation of an incisional hernia. Patient had a CAT scan of the abdomen and pelvis for kidney stones and was noted to have a rather large incisional hernia just above her umbilicus. She says that she has had this for actually quite some time she does not have any pain or discomfort with it but it has been growing in size. The CT scan Shows a 10 x 5 x 8 cm anterior abdominal wall superior umbilical incisional hernia. The transverse colon and omentum are in the hernia. Since I originally saw her in September she is started to have some increasing discomfort in the area. And would like to have this repaired.She has had no change in her bowel or bladder habits. ROS General General: No weight change, appetite, fatigue, colon cancer, breast cancer or weakness HEENT HEENT: No difficulty swallowing, eye injury, eye surgery, swollen glands or hoarseness Endo Endocrine: Yes diabetes mellitus and thyroid cancer; no thyroid disease, Hair loss, heat intolerance or cold intolerance Breast Breast: No left breast lump, right breast lump, nipple discharge, breast pain, abnormal mammogram, abnormal US or breast enlargement Musc Musculoskeletal: Yes arthritis; no back problems, rheumatoid arthritis, gout or joint pain Cardio Cardiovascular: Yes high blood pressure; no murmur, pacemaker, heart disease, atrial fibrillation, heart attack, heart stent, palpitations, shortness of breat with exertion or chest pain Psych Psychiatric: No depression, anxiety or hearing voices Resp Respiratory: No shortness of breath, Yes sleep apnea, No cough, No COPD, No asthma, No emphysema, No wheezing Gastro Gastrointestinal: No abdominal pain, No nausea or vomiting, No diarrhea, No constipation, No blood in stool, Yes acid reflux, No hemorrhoids, No ulcers, No gallbladder problem, No black,tarry stools Jamaal Hematologic: No blood thinners, No blood disorders, No bleeding, No anemia, No blood clots Neuro Neurologic: No weakness Exam Const General: no acute distress, well developed, well hydrated Orientation: oriented to person, oriented to place, oriented to time [facility] Head: normocephalic, atraumatic Ears: external ears normal Mouth: moist mucous membranes Eyes Sclera: sclerae normal Pupils: normal by confrontation Neck Neck: no lymphadenopathy noted Neck mass: No Thyroid: thyroid normal, symmetrical Chest Chest palpation & inspection: normal inspection of the chest Breast Palpation: No nipple discharge Resp Effort & Inspection: normal respiratory effort Auscultation: clear to auscultation bilaterally Percussion: percussion normal Cardio Rate: regular rate Rhythm: regular rhythm Heart Sounds: no murmurs GI Palpation: soft, no hepatosplenomegaly, no masses, tender Rectal Exam: other Other: Large reducible incisional hernias identified superior to the umbilicus.It is nontender to touch it easily reduces.It does not feel larger than it initially did when I saw her in September. Rectal exam deferred. Extrem General: normal to inspection, no clubbing, cyanosis or edema Assessment & Plan Problems 1. Incisional hernia, without obstruction or gangrene K43.2 Plan My plan is to perform an Incisional hernia repair with mesh. The planned surgical procedure was discussed extensively with the patient. The risks, benefits, anticipated outcomes and possible complication were mentioned. The patient understands that all hernia repair surgery has a chance of recurrence and/or chronic post-operative pain. My staff has also explained the procedure in understandable terms and the patient was given the option to take printed material concerning the planned procedure. The patient had the opportunity to ask questions concerning the planned procedure. The patient freely consents to the planned procedure. Coding Level of Care Code Off vis,est,level 2 Diagnoses Incisional hernia, without obstruction or gangrene K43.2 ??Obstruction and gangrene presence: without obstruction or gangrene COVID (Procedure Consent) Procedure Criteria Procedure Criteria: Yes Elective The surgeon/proceduralist and patient have discussed in detail the risk of exposure to and/or potential harm posed by the COVID-19 virus with having a surgery/procedure at this time versus the risk of? delaying the surgery/procedure. It is not possible to know either the risk of delaying the surgery or procedure or chance of getting an infection with perfect accuracy, but a joint decision was made between the patient and the surgeon/proceduralist ?to proceed at this time with the scheduled surgery/procedure as indicated on the consent form. 04/09/20 1118 <Electronically signed by Sanjay Hayes MD> Date Sanjay Hayes MD [facility] Signature: Date (if applicable) CC: ~ I have re-examined the patient. There are no clinical changes since date of exam.
--- NOTE | 2020-05-03 11:00 | HERN_PTH ---
PATIENT: HOLDEN CORLEY LOC: [facility] U#:[id number] AGE/SX: 64/F ROOM: RE05/03/[address]: Dr. Sanjay Hayes MD : 1955 BED: DIS: 05/04/2020 SPEC #: [id number] RECD: 05/03/20 13:12 STATUS: MARIN NII #: [id number] BON: 05/03/20 11:[address]: Sanjay Hayes DEPT: SURGICAL PATHOLOGY RECD BY: Kevin Peoples ENTERED: 05/04/20 07:00 SP TYPE: Hernia OTHR DR: Dr. Mervin Munoz MD Tissues: HERNIA Procedures: Surgery Specimen Level III HEADER OPERATION: Incisional hernia repair with mesh PRE-OP DIAGNOSIS: Incisional hernia TISSUE SUBMITTED: Hernia sac MICROSCOPIC DIAGNOSIS Hernia sac, herniorrhaphy: Fibrosis. AM:tatyana 05/05/20 MICROSCOPIC DESCRIPTION Slides are reviewed. GROSS DESCRIPTION Received in fixative is one container labeled with the patient's name and designated hernia sac. The specimen consists of a piece of fibromembranous tissue measuring 5 x 2 x 1 cm. Sections do not reveal any mass lesion. Validation Software Facilitator sections are submitted in one cassette. / AM:tatyana 05/04/20 TC:5 CPT: 77343
[2020-05-03] MEDS: 0.9% Normal Saline (Pres. free 10 ML Vial (11:39)
[2020-05-03] MEDS: BUPIVACAINE LIPOSOME/PF 20 ML VIAL OPERA.SITE (11:39)
[2020-05-03 13:05] LABS: Bedside Glucose 119 mg/dL (70-110)
--- NOTE | 2020-05-03 13:07 | PCM.OPRPT ---
Problem List (1) Incisional hernia Status: Acute Qualifiers: Obstruction and gangrene presence: without obstruction or gangrene Qualified Code(s): K43.2 - Incisional hernia without obstruction or gangrene Report of Operation Date of Procedure: 05/03/20 Pre-Operative Diagnosis: Incisional hernia Post-Operative Diagnosis: Same Surgery/Procedure Performed:: Incisional hernia repair with mesh Type of Anesthesia:: General Anesthesiologist: Jose Luis Conde Drains: 15 round Rico-Encarnacion Estimated Blood Loss (mL): < 25 cc Description of Procedure: Patient was brought in the operating room. Placed in the supine position. Under excellent general endotracheal ovation abdomen was sterilely prepped and draped in usual fashion. Patient had a previous midline incision below the umbilicus and extending superiorly to the left side. Her hernia was in the upper aspect of this extending towards the xiphoid. I injected local. I made an incision in the upper abdomen close to the umbilical area and extended it towards the left side. I dissected down hernia sac was identified I dissected it free from the peritoneal he structured fascia. I tried to get this off but I just could not get into a good peritoneal plane it was very thin and wispy it was very clear that I was going to have to take the hernia sac off placed the contents back into the abdominal cavity and then close in a 2 layered approach. I dissected the anterior refractory bricklayer circumferentially around this defect which measured approximately 9 cm in length and approximately 6 cm in width. This anterior layer once I got it free both anteriorly and towards the abdominal area I closed with #1 Vicryl. There were no rents identified during this process. I then fashioned a ventral ST hernia patch into the wound. Reference #[id number] lot number [id number] this laid completely flat in the area I was very happy with this. I did take a pro-tack and tack it with 3 tacks superiorly and inferiorly so that it would stay flat and not move. I then circumferentially used interrupted [id number] sutures of #1 Nurolon to tack the fascia down onto the mesh itself. Once this was completed I brought a drain in from the left lateral approach this was where the hernia sac had traveled down the most. I sutured it to the skin with a 3-0 nylon and then placed it in the superior aspect underneath the layer of nylon so that it would be able to collect any fluid that were to accumulate. After this was done this I injected Exparel throughout the musculature. I then brought the subcu together with 2-0 Vicryl deep dermals with 3-0 Vicryl then a running 4-0 Monocryl Steri-Strips were applied sterile dressings were applied and the patient tolerated the procedure well. - Admit VTE Documentation VTE Present on Admission: No VTE Mechan Device Prophylaxis: SCD's VTE Pharm Prophylaxis ordered?: No Reason prophylaxis not ordered:: Treatment Not Indicated [id number]: Other Procedure See Notes - [id number]
--- NOTE | 2020-05-03 14:05 | NURSING ---
pt arrived to unit @ 1400 dose of clindamycin not on unit
[2020-05-03] MEDS: metFORMIN HCl 500 MG Tablet PO (18:42)
[2020-05-03] MEDS: oxyCODONE 5 MG Tablet PO (18:44)
[2020-05-03] MEDS: Atorvastatin Calcium 20 MG Tablet PO (20:44)
[2020-05-04 03:54] VITALS: BP 112/49; PULSE 84; RESP 18; TEMP 36.9; O2SAT 95
[2020-05-04] MEDS: Levothyroxine 137 MCG Tablet PO (05:17)
[2020-05-04 07:36] VITALS: BP 108/52; PULSE 76; RESP 16; TEMP 36.8; O2SAT 95
[2020-05-04] MEDS: Triamterene 37.5MG/Hctz 25MG Capsule 1 CAP PO (07:42)
[2020-05-04] MEDS: metFORMIN HCl 500 MG Tablet PO (07:42)
[2020-05-04] MEDS: Etodolac 300 MG Capsule PO (07:42)
[2020-05-04] MEDS: Losartan Potassium 25 MG Tablet PO (07:42)
[2020-05-04] MEDS: Famotidine 20 MG Tablet 40 MG PO (07:46)
--- NOTE | 2020-05-04 09:57 | PCM.PN.SRG ---
Patient Problems: Active and Suspected Problems (Last Reviewed 04/07/20 @ 13:32 by Dory Spence) Incisional hernia (Acute) Subjective: Patient evaluated resting comfortably in the chair. Patient notes minimal amount of discomfort with sitting more uncomfortable with movement. Denies nausea, vomiting, fever. Urinating well. Negative flatus. - Physical Exam Vitals/I&O's: Vital Signs Temp Pulse Resp BP Pulse Ox 98.3 F 76 16 108/52 L 95 05/04/20 07:36 05/04/20 07:36 05/04/20 07:36 05/04/20 07:36 05/04/20 07:36 Oxygen Delivery Method Room Air Weight: 159 lb 13.362 oz Body Mass Index (BMI) 27.4 Intake and Output for Last 24 Hours 05/02/20 05/03/20 05/04/20 23:59 23:59 23:59 Intake Total 1493.67 / 1493.67 1024.33 / 1024.33 Output Total 500 / 500 330 / 330 Balance 993.67 / 993.67 694.33 / 694.33 General: Alert, Oriented x3, Cooperative Abdomen: Soft, Hypoactive Bowel Sounds, Obese, Tender - very minimal amount of discomfort, - - Incision c/d/i. LANNY drain removed. Tip intact. Patient tolerated well. Laboratory Results 05/03/20 12:58: POC Glucose 119 H Current Medications Acetaminophen (Acetaminophen 325 Mg Tablet) 650 mg PO Q6H PRN PRN PRN Reason: Pain Score 1-10 Alendronate Sodium (Alendronate Sodium 70 Mg Tablet) 70 mg PO QWEEK [facility] Atorvastatin Calcium (Atorvastatin Calcium 20 Mg Tablet) 20 mg PO QHS [facility] Last Admin: 05/03/20 20:44 Dose: 20 mg Documented by: Etodolac (Etodolac 300 Mg Capsule) 300 mg PO DAILY [facility] Last Admin: 05/04/20 07:42 Dose: 300 mg Documented by: Famotidine (Famotidine 20 Mg Tablet) 40 mg PO DAILY [facility] Last Admin: 05/04/20 07:46 Dose: 40 mg Documented by: Hydromorphone HCl (Hydromorphone 0.5 Mg/0.5 Ml Syringe) 0.5 - 1 mg IV Q2H PRN PRN PRN Reason: Pain Score 1-10 Clindamycin Phosphate 900 mg/ (Dextrose) 106 mls @ 150 mls/hr IV Q8H [facility] Last Infusion: 05/04/20 04:34 Dose: Infused Documented by: Influenza Virus Vaccine Quadrival (Influenza Vaccine (6mos+)/Pf 0.5 Ml Syringe) 0.5 ml IM .ONCE ONE Stop: 05/04/20 10:01 Last Admin: 05/04/20 07:43 Dose: 0.5 ml Documented by: Levothyroxine Sodium (Levothyroxine 137 Mcg Tablet) 137 mcg PO DAILY@0600 [facility] Last Admin: 05/04/20 05:17 Dose: 137 mcg Documented by: Losartan Potassium (Losartan Potassium 25 Mg Tablet) 25 mg PO DAILY [facility] Last Admin: 05/04/20 07:42 Dose: 25 mg Documented by: Metformin HCl (Metformin Hcl 500 Mg Tablet) 500 mg PO BIDCM [facility] Last Admin: 05/04/20 07:42 Dose: 500 mg Documented by: Ondansetron HCl (Ondansetron 4 Mg/2 Ml Vial) 4 mg IV Q8H PRN PRN PRN Reason: NAUSEA Oxycodone HCl (Oxycodone 5 Mg Tablet) 5 - 10 mg PO Q4H PRN PRN PRN Reason: Pain Score 1-10 Last Admin: 05/03/20 18:44 Dose: 5 mg Documented by: Sodium Chloride (0.9% Saline Lock 10 Ml Syringe) 10 - 40 ml IV UD PRN PRN Reason: SALINE FLUSH Triamterene/HCTZ (Triamterene 37.5mg/Hctz 25mg Capsule) 1 cap PO DAILY [facility] Last Admin: 05/04/20 07:42 Dose: 1 cap Documented by: Medical Necessity - Tobacco Use Smoking Status: Former smoker Assessment/Plan All Active Problems (Last Reviewed 04/07/20 @ 13:32 by Dory Spence) Incisional hernia (Acute) Sleep apnea (Acute) History of colon polyps (Acute) History of thyroid cancer (Acute ~2012) History of pneumococcal pneumonia (Resolved) History of bronchitis (Resolved) right hand surgery (Resolved) Chest pain (Acute) I am following this patient in conjunction with Dr. Hayes Impression: S/p incisional hernia repair with mesh Probable discharge later today Tolerating diet well Urinating well LANNY drain removed today Home going instructions discussed with patient Inpatient E&M: 79321 Subs Hosp L1 - No charge
--- NOTE | 2020-05-04 10:04 | DCINST_ITS ---
Discharge Diet: Light diet - advance as tolerated Discharge Activity: May Not Drive - for 5 days or while taking narcotic pain meds., May Shower - with the bandage in place 1 day after surgery. Lifting Restrictions: 20 pounds for 8 weeks. Additional Activity Instructions:: Climbing stairs is fine, walking is encouraged. Sitting in bed may be uncomfortable. Sitting up using your lateral muscles (sitting up sideways) is usually more comfortable. Do not drive, work heavy equipment of sign legal documents for 24 hours. Pain medications may cause nausea, you should typically eat light foods as you take your pain medications. Pain medications may also cause constipation. If you have difficulty with this, discuss with your doctor. Call your doctor if your incision/area has: Continuous Slow Oozing, Sudden Increased Bleeding, Increased Pain/ Swelling, Increased Redness, Foul Smelling Discharge Call your doctor if you observe: Fever of 101 or Higher Suture Line Care: Avoid Pulling/Pushing, Avoid Pinching/Bending Change Dressing in (Days):: 2 - Leave steri-strips for 1 week. May protect with a guaze bandaid. Cleanse incision/area with: Soap & Water Allergies/Adverse Reactions: Allergies Penicillins Adverse Reaction (Verified 05/03/20 09:18) Hives Medications to take at Discharge Cholecalciferol (VIT D3) [Vitamin D3] 1,000 unit PO DAILY 03/24/16 Famotidine [Pepcid] 40 mg PO DAILY 03/24/16 Levothyroxine [Synthroid] 137 mcg PO DAILY 03/24/16 Nabumetone [Relafen] 750 mg PO DAILY 03/24/16 Pyridoxine HCl [Vitamin B-6] 100 mg PO DAILY 03/24/16 aspirin 81 mg tablet,delayed release 81 mg PO .q day tab 10/23/17 atorvastatin 20 mg tablet 20 mg PO QHS tab 10/23/17 flaxseed oil 1,000 mg capsule 1,000 mg PO QDAY 10/23/17 glucosamine 500 [id number]-apm no1 416.6 mg-C 20 qd-tpdg-unfy tablet 1 tab PO .q day ea 10/23/17 tvpyqnkg-van-xhthf acid 0.4 mg-lycopene 300 mcg-lutein 250 mcg tablet 1 tab PO QDAY 10/23/17 omega-3 fatty acids 1,000 mg capsule 1,000 mg PO QDAY 10/23/17 selenium 200 mcg capsule 200 mcg PO QDAY 10/23/17 triamterene 50 mg-hydrochlorothiazide 25 mg capsule 1 cap PO .q day ea 10/23/17 metformin 500 mg tablet 500 mg PO BID tab 06/02/18 Alendronate Sodium 1 tab PO QWEEK 07/17/19 fluticasone propionate 50 mcg/actuation nasal spray,suspension 1 spray INTRANA ROSSANA QDAY PRN 02/15/20 Losartan Potassium [Cozaar] 25 mg PO QDAY 04/25/20 Oxycodone [Oxyir] 5 mg PO Q6H PRN PRN 4 Days #12 tablet 05/04/20 The following prescriptions were given: Oxycodone [Oxyir] 5 mg PO Q6H PRN PRN 4 Days #12 tablet PRN Reason: Pain Score 1-10 Transmission Status: Sent to [id number] Primary Care Physician: Mervin Munoz MD [Primary Care Provider] - Test Results: Test results from this visit will be discussed in further detail at your follow- up appointment, if applicable. Please Follow Up With: Elana Dougherty PA-C - [phone] When: 10 days Proposed Discharge Date: 05/04/20
[2020-05-04 14:27] VITALS: BP 104/50; PULSE 72; RESP 18; TEMP 36.8; O2SAT 98
== END 2020-05-04 16:10 | disposition home or self-care (01) ==
LOC: SDC 08:55 → AC 08:56 → MS3 13:35
PROVIDERS: Anesthesiology; PCP Family Medicine; Referring Provider Surgery; Visit Provider Surgery
PROC: (CPT 49560; principal; 2020-05-03 10:45)
DX: K43.2 Incisional hernia without obstruction or gangrene (principal); Z11.59 Encounter for screening for other viral diseases; I10 Essential (primary) hypertension; E11.9 Type 2 diabetes mellitus without complications; E03.9 Hypothyroidism, unspecified; G47.30 Sleep apnea, unspecified; E78.00 Pure hypercholesterolemia, unspecified; Z23 Encounter for immunization; Z78.0 Asymptomatic menopausal state; Z87.01 Personal history of pneumonia (recurrent); Z86.010 Personal history of colon polyps; Z85.850 Personal history of malignant neoplasm of thyroid; Z79.84 Long term (current) use of oral hypoglycemic drugs; Z79.82 Long term (current) use of aspirin; Z79.899 Other long term (current) drug therapy; Z87.891 Personal history of nicotine dependence
CPT/HCPCS: 49560; 49568; 36415; 80048; 82962; 83036; 84443; 85027; 87635; 88302; 88304; 93005; 99251; C9803; J7120; 90686; C1781; G0463; J2405; J3490; U0003

== ENCOUNTER → 2020-08-11 09:34 | Outpatient (CLI) | payer OTHER, SELFPAY ==
[2020-05-03 14:01] VITALS: BMI 27.4
[2020-08-11 10:38] LABS: AST(SGOT) 17 U/L (15-37); Alanine Aminotransfer ALT/SGPT 31 U/L (13-56); Albumin, Serum 3.3 g/dL (3.2-5.0); Alkaline Phosphatase 77 U/L (45-117); Bilirubin, Direct 0.13 mg/dL (0.00-0.30); Cholesterol 143 mg/dL (200); Globulin 3.1 g/dL (2.2-4.2); High Density Lipoprotein 47 mg/dL; Protein, Total 6.4 g/dL (6.4-8.2); Triglycerides 135 mg/dL; Very Low Density Lipoprotein 27 mg/dL (5-40)
== END ==
PROVIDERS: Internal Medicine Cardiovascular Disease; PCP Family Medicine; Referring Provider Physician Assistant Medical; Visit Provider Physician Assistant Medical
DX: E78.5 Hyperlipidemia, unspecified (principal)
CPT/HCPCS: 36415; 80061; 80076

== ENCOUNTER → 2020-11-15 07:46 | Outpatient (CLI) | payer OTHER, SELFPAY ==
[2020-11-15 08:14] LABS: Hematocrit 41.7 % (37-47); Hemoglobin 13.2 g/dL (12.0-15.0); Mean Corp Hgb Conc 31.7 g/dL (32-36); Mean Corpuscular Hgb 29.2 pg (27.0-32.0); Mean Corpuscular Volume 92.3 fL (81-99); Platelet Count 242 K/mm3 (150-450); RBC Distribution Width CV 13.6 % (11.6-14.6); RBC Distribution Width SD 46.4 fl (35.1-43.9); Red Blood Count 4.52 M/mm3 (4.2-5.4); White Blood Count 6.2 K/mm3 (4.4-11.0)
[2020-11-15 09:27] LABS: Vitamin B12 > 2000 pg/mL (211-911)
[2020-11-15 09:28] LABS: ALB/GLOB Ratio 1.2 RATIO (0.9-2.4); AST(SGOT) 19 U/L (15-37); Alanine Aminotransfer ALT/SGPT 31 U/L (13-56); Albumin, Serum 3.6 g/dL (3.2-5.0); Alkaline Phosphatase 78 U/L (45-117); Anion Gap 4 (5-15); BUN 17 mg/dL (7-18); BUN/Creat Ratio 18.5 RATIO (10-20); Calcium,Total 8.7 mg/dL (8.5-10.1); Chloride 107 mmol/L (98-107); Creatinine, Serum 0.92 mg/dL (0.55-1.02); EST Glomerular Filtration Rate 65 mL/min (>60); Est Glom Filt Rate - Afr Amer 79 mL/min (>60); Glucose 122 mg/dL (74-106); Potassium 3.7 mmol/L (3.5-5.1); Protein, Total 6.6 g/dL (6.4-8.2); Sodium Level 140 mmol/L (136-145); Thyroid Stim Hormone (TSH) 2.52 uIU/mL (0.358-3.74)
== END ==
PROVIDERS: PCP Family Medicine; Referring Provider Psychiatry & Neurology Neurology; Visit Provider Psychiatry & Neurology Neurology
DX: M54.17 Radiculopathy, lumbosacral region (principal)
CPT/HCPCS: 36415; 80053; 82607; 82746; 84443; 85027

== ENCOUNTER → 2021-03-29 06:07 | Outpatient (CLI) | payer OTHER, SELFPAY ==
--- NOTE | 2021-03-29 10:48 | NEURO ---
NCS and/or EMG Patient Report Ordering Doctor: James Velarde DATE OF SERVICE: 03/29/21 Lei Marquez presents for electrodiagnostic testing of the right lower limb. She reports continued right lower extremity numbness and pain around the ankle and foot. Electrodiagnostic findings: Right peroneal motor nerve demonstrates normal distal latency and amplitude with reduced conduction velocity across the fibular head. Normal right tibial motor response. Prolonged right sural latency. On needle EMG, polyphasic motor units are noted in the right gastrocnemius. No acute denervation is noted. Electrodiagnostic impression: This is an abnormal study in the right lower limb 1. Electrodiagnostic findings demonstrate a right-sided peroneal neuropathy with slowing of conduction across the fibular head. 2. There is no electrodiagnostic evidence for lumbosacral radiculopathy. 3. Electrodiagnostic findings demonstrate a mild right sural neuropathy.
== END ==
PROVIDERS: PCP Family Medicine; Referring Provider Psychiatry & Neurology Neurology; Visit Provider Psychiatry & Neurology Neurology
DX: M54.17 Radiculopathy, lumbosacral region (principal)
CPT/HCPCS: 95886; 95910

== ENCOUNTER → 2021-05-09 08:04 | Outpatient (CLI) | payer OTHER, SELFPAY ==
[2021-05-09 09:25] LABS: AST(SGOT) 20 U/L (15-37); Alanine Aminotransfer ALT/SGPT 34 U/L (13-56); Albumin, Serum 3.4 g/dL (3.2-5.0); Alkaline Phosphatase 71 U/L (45-117); Bilirubin, Direct 0.15 mg/dL (0.00-0.30); Cholesterol 134 mg/dL (200); Globulin 3.2 g/dL (2.2-4.2); High Density Lipoprotein 51 mg/dL; Protein, Total 6.6 g/dL (6.4-8.2); Triglycerides 94 mg/dL; Very Low Density Lipoprotein 19 mg/dL (5-40)
== END ==
PROVIDERS: PCP Family Medicine; Referring Provider Nurse Practitioner Gerontology; Visit Provider Nurse Practitioner Gerontology
DX: E78.00 Pure hypercholesterolemia, unspecified (principal); E78.5 Hyperlipidemia, unspecified
CPT/HCPCS: 36415; 80061; 80076

== ENCOUNTER 2021-08-23 20:23 | Outpatient (CLI) | payer OTHER, SELFPAY | END 2021-08-23 23:59 | disposition short-term general hospital (02) | PROVIDERS: PCP Family Medicine; Visit Provider Physician Assistant | DX: Z20.822 Contact with and (suspected) exposure to COVID-19 (principal) | CPT/HCPCS: 87635; U0003; U0005 ==

== ENCOUNTER 2021-09-18 08:13 | Outpatient (CLI) | payer OTHER, SELFPAY ==
--- NOTE | 2021-09-18 10:47 | NEURO_ITS ---
NCS and/or EMG Patient Report Ordering Doctor: Elisa Hirsch NP DATE OF SERVICE: 09/18/21 Indication: Sensory symptoms affecting the right lower extremity following an intrapelvic surgery approximately 13 years ago. Since that time she has had fixed numbness on the lateral aspect of the right foot. There is no associated motor deficit. Symptoms are static, but bothersome. Evaluate for peripheral nerve injury. Findings: Nerve conduction studies were performed in the right lower extremity. Some comparisons were made to the left side. The right peroneal motor study recording the extensor digitorum brevis showed a normal amplitude, normal distal latency and normal conduction velocity. No conduction block or focal slowing was present across the fibular neck. The right tibial motor study recording the abductor hallucis brevis showed a normal amplitude, normal distal latency and borderline conduction velocity. The right sural sensory response was difficult to obtain. When a waveform was recorded, it was small in amplitude and not reproducible. The left sural response, however, was very easily recorded with a normal amplitude, latency and conduction velocity. The right superficial peroneal sensory response showed a normal amplitude and conduction velocity. Needle EMG of the right lower extremity lumbosacral paraspinal muscles was performed. No denervation was present in any muscle, but insertional activity was slightly increased within the medial gastrocnemius. Motor units in the med ial gastrocnemius were normal morphology, though activation was decreased. Motor units in the flexor digitorum longus were large amplitude with normal recruitment. Motor units in the biceps femoris were large amplitude and long duration with normal recruitment. Motor unit morphology, activation, and recruitment patterns were normal in the tibialis anterior and vastus medialis. Impression: This is an abnormal study. There is electrophysiologic evidence suggestive of a mild, chronic, right sciatic mononeuropathy. Alternatively, similar findings could be seen in a mild, chronic, right lumbosacral plexopathy. In either case, the lesion is incomplete preferentially affecting the fascicles destined for the tibial distribution. There is no active denervation to suggest any ongoing motor axon loss. Alex Alcala D.O. Multi Select Codes Neurology Neurology Interp Codes: 23654-88 Musc test done w/n test comp (interp) and 58662-96 Nrv cndj tst 5-6 studies (interp)
== END 2021-09-18 23:59 | disposition home or self-care (01) ==
LOC: PSN 08:15
PROVIDERS: PCP Family Medicine; Referring Provider Nurse Practitioner Family; Visit Provider Nurse Practitioner Family
DX: G57.81 Other specified mononeuropathies of right lower limb (principal); G57.31 Lesion of lateral popliteal nerve, right lower limb
CPT/HCPCS: 95886; 95909

== ENCOUNTER → 2022-05-31 | Outpatient (CLI) | payer OTHER, SELFPAY ==
[2022-05-31 09:31] LABS: Absolute Lymphocyte Count 1.66 X10^3/uL (0.83-4.51); Absolute Neutrophil Count 5.5 X10^3/uL (2.0-7.7); Basophil# 0.03 X10^3/uL; Basophil% 0.4 % (0-1); Eosinophil# 0.11 X10^3/uL; Eosinophils% 1.3 % (0-5); Hematocrit 41.5 % (37-47); Hemoglobin 13.8 g/dL (12.0-15.0); Lymphocyte # 1.66 X10^3/ul (0.83-4.51); Mean Corp Hgb Conc 33.3 g/dL (32-36); Mean Corpuscular Hgb 29.9 pg (27.0-32.0); Mean Corpuscular Volume 89.8 fL (81-99); Mean Platelet Vol. 9.5 fl (6.2-12.0); Monocyte# 0.95 X10^3/uL; Monocyte% 11.4 % (0-10); NRBC Flagged by Analyzer 0 % (0-5); Neutrophil # 5.53 X10^3/uL (2.7-7.7); Neutrophil % 66.5 % (47-70); Platelet Count 292 K/mm3 (150-450); RBC Distribution Width CV 13.4 % (11.6-14.6); RBC Distribution Width SD 44.1 fl (35.1-43.9); Red Blood Count 4.62 M/mm3 (4.2-5.4); White Blood Count 8.3 K/mm3 (4.4-11.0)
[2022-05-31 10:23] LABS: AST(SGOT) 21 U/L (15-37); Alanine Aminotransfer ALT/SGPT 32 U/L (13-56); Albumin, Serum 3.5 g/dL (3.2-5.0); Alkaline Phosphatase 73 U/L (45-117); Anion Gap 9 (5-15); BUN 11 mg/dL (7-18); BUN/Creat Ratio 14.5 RATIO (10-20); Calcium,Total 9.8 mg/dL (8.5-10.1); Chloride 98 mmol/L (98-107); Cholesterol 141 mg/dL (200); Creatinine, Serum 0.76 mg/dL (0.55-1.02); EST Glomerular Filtration Rate 80 mL/min (>60); Est Glom Filt Rate - Afr Amer 97 mL/min (>60); Globulin 3.4 g/dL (2.2-4.2); Glucose 121 mg/dL (74-106); High Density Lipoprotein 62 mg/dL; Magnesium 1.8 mg/dL (1.6-2.6); Potassium 3.9 mmol/L (3.5-5.1); Protein, Total 6.9 g/dL (6.4-8.2); Sodium Level 136 mmol/L (136-145); Triglycerides 74 mg/dL; Very Low Density Lipoprotein 15 mg/dL (5-40)
== END | disposition home or self-care (01) ==
LOC: LAB 09:04
PROVIDERS: PCP Family Medicine; Visit Provider Physician Assistant Medical
DX: I10 Essential (primary) hypertension (principal); E78.5 Hyperlipidemia, unspecified; G47.33 Obstructive sleep apnea (adult) (pediatric); A28.1 Cat-scratch disease
CPT/HCPCS: 36415; 80053; 80061; 83735; 85025

== ENCOUNTER 2024-05-21 06:19 | Outpatient (CLI) | payer OTHER, SELFPAY ==
--- NOTE | 2024-05-21 06:26 | ECHOD_ITS ---
Version 2 Reason For Study: ARRHYTHMIA Procedure This was a 2D Doppler, Color Flow transthoracic echocardiogram. Exam performed in department. Left Ventricle Normal LV size. Left ventricular systolic function is normal. The left ventricular ejection fraction is 65 %. Stage 1 diastolic dysfunction. No regional wall motion abnormalities noted. Right Ventricle Normal RV size. Normal systolic function. Atria Normal left atrium. Normal right atrium. Mitral Valve Normal mitral valve. Tricuspid Valve Normal tricuspid valve. Mild tricuspid valve insufficiency. Right ventricular systolic pressure estimated to be 28 mmHg. Aortic Valve Trisinus/trileaflet aortic valve. Pulmonic Valve Normal pulmonic valve. Great Vessels Normal aortic root. The pulmonary artery is normal size. Normal inferior vena cava. Pericardium/Pleural No pericardial effusion. MMode/2D Measurements & Calculations LVIDd: 4.9 cm IVSd: 1.1 cm LVOT diam: 2.0 cm LVIDs: 2.6 cm LVPWd: 1.1 cm LVOT area: 3.2 cm2 RVDd: 3.5 cm FS: 47.1 % asc Aorta Diam: 3.5 cm LAV(MOD-bp): 31.6 ml LVAd ap4: 16.3 cm2 LAV(MOD-bp) Indexed: 18.3 ml/m2 LVLd ap4: 6.8 cm LAV(MOD-sp2): 31.6 ml EDV(MOD-sp4): 32.6 ml LAV(MOD-sp4): 25.5 ml EDV(sp4-el): 33.1 ml LVAs ap4: 9.5 cm2 LVLs ap4: 5.9 cm ESV(MOD-sp4): 13.1 ml ESV(sp4-el): 12.9 ml EF(MOD-sp4): 59.9 % EF(sp4-el): 60.9 % LVAd ap2: 17.5 cm2 SV(MOD-sp4): 19.5 ml SV(MOD-sp2): 24.7 ml LVLd ap2: 7.1 cm SI(MOD-sp4): 11.3 ml/m2 SI(MOD-sp2): 14.3 ml/m2 EDV(MOD-sp2): 36.3 ml EDV(sp2-el): 36.8 ml LVAs ap2: 8.6 cm2 LVLs ap2: 5.6 cm ESV(MOD-sp2): 11.6 ml ESV(sp2-el): 11.1 ml EF(MOD-sp2): 68.0 % SV(sp4-el): 20.2 ml Ao sinus diam: 3.[address] Junction: 2.7 cm LA dimension(2D): 3.7 cm LA A4 area: 11.2 cm2 RA A4 area: 9.2 cm2 TAPSE: 1.3 cm Time Measurements MV dec time: 0.25 sec Doppler Measurements & Calculations MV E max osmin: 57.4 cm/sec Lat Peak E' Osmin: 5.8 cm/sec Med Peak E' Osmin: 6.2 cm/sec MV A max osmin: 91.7 cm/sec E/E' lat: 9.9 E/E' med: 9.3 MV E/A: 0.63 MV dec slope: 225.3 cm/sec2 Ao V2 max: 101.9 cm/sec LV V1 max: 95.1 cm/sec Ao max P.2 mmHg LV V1 max P.6 mmHg Ao V2 mean: 73.4 cm/sec LV V1 mean P.9 mmHg Ao mean P.3 mmHg LV V1 mean: 66.3 cm/sec Ao V2 VTI: 18.7 cm LV V1 VTI: 16.3 cm AV (velocity ratio): 0.87 BRENT(I,D): 2.8 cm2 BRENT(V,D): 2.9 cm2 SV(LVOT): 51.5 ml PA V2 max: 69.2 cm/sec TR max osmin: 249.6 cm/sec PA max PG (full): 0.13 mmHg TR max P.9 mmHg ECHO/Echo Complete Interpretation Summary Normal LV size. Left ventricular systolic function is normal. The left ventricular ejection fraction is 65 %. Stage 1 diastolic dysfunction. Structurally normal valves. Ordering Physician: Sarah Sapp Referring Physician: Sarah Sapp Performed By: Anika Garland RDCS
--- NOTE | 2024-05-21 15:32 | STRESSREP ---
Stress Test Report Pharmacologic myocardial perfusion stress test. 68-year-old lady with a history of premature ventricular complexes Resting EKG demonstrates sinus rhythm with a rate of 79 bpm. Resting blood pressure is 148/70 mmHg. 0.4 mg of regadenoson was infused per usual protocol followed by rapid intravenous saline flush injection. Continuous EKG monitoring was performed. The maximum heart rate was 116 bpm which was 77 of max impacted heart rate the maximum workload was 1 metabolic equivalent. At rest there were no ST or T wave changes noted to suggest ischemia and at peak infusion nonspecific ST changes were noted which did not meet the criteria for ischemia. No clinical angina is noted. The final blood pressure was 146/70 mmHg. Myocardial perfusion protocol. 10.3 mCi of technetium 99m sestamibi was injected at rest. 0.4 mg of regadenoson was infused per usual protocol. At peak infusion 32.4 mCi of technetium 99m sestamibi was injected stress images were obtained stress and rest images were reconstructed and compared in the short axis vertical long and horizontal long axis. Gated images were also obtained. Perfusion SPECT analysis: Review of the stress images demonstrate normal uptake of tracer noted in all areas of the myocardium. The resting images similar demonstrated normal uptake of tracer noted in all areas of the myocardium. No areas of reversibility are noted to suggest ischemia and no previous infarct is noted. Gated SPECT analysis: The gated ejection fraction is 86%. Conclusion: Normal pharmacologic myocardial perfusion stress test. Preserved ejection fraction.
== END 2024-05-21 23:59 | disposition home or self-care (01) ==
LOC: CVS 06:22
PROVIDERS: PCP Family Medicine; Referring Provider Nurse Practitioner Gerontology; Visit Provider Nurse Practitioner Gerontology
DX: I47.20 Ventricular tachycardia, unspecified (principal); I50.30 Unspecified diastolic (congestive) heart failure; E78.5 Hyperlipidemia, unspecified
CPT/HCPCS: 78452; 93017; 93306; A9500; A4216; J2785

== ENCOUNTER → 2024-11-13 | Outpatient (CLI) | payer OTHER, SELFPAY ==
[2024-11-13 12:40] LABS: Anion Gap 12 (5-15); BUN 8 mg/dL (4-19); BUN/Creat Ratio 11.8 RATIO (10-20); Calcium,Total 9.8 mg/dL (7.6-11.0); Carbon Dioxide 27.7 mmol/L (21.0-32.0); Chloride 96 mmol/L (98-108); Creatinine, Serum 0.71 mg/dL (0.70-1.20); EST Glomerular Filtration Rate 91 (>60); Glucose 153 mg/dL (70-99); Magnesium 1.8 mg/dL (1.5-2.2); Potassium 3.8 mmol/L (3.3-5.1); Sodium Level 136 mmol/L (133-145)
== END | disposition home or self-care (01) ==
LOC: LAB 11:21
PROVIDERS: PCP Family Medicine; Referring Provider Physician Assistant Medical; Visit Provider Physician Assistant Medical
DX: I47.20 Ventricular tachycardia, unspecified (principal)
CPT/HCPCS: 36415; 80048; 83735